=== PATIENT | female | born 1965 | race Caucasian/White ===

== ENCOUNTER 2019-02-10 06:32 | Inpatient (IN) ==
--- NOTE | 2019-01-16 16:20 | PAT Medication Instructions ---
Medication Instructions Date of Service January 16, 2019 Home Medications anastrozole 1 mg PO QPM calcium carbonate-vitamin D3 [Calcium 600 + D(3)] 1 cap PO BID carvedilol 25 mg PO BID cetirizine 10 mg PO HS ezetimibe [Zetia] 10 mg PO QPM fulvestrant [Faslodex] 250 mg IM MONTHLY hydrochlorothiazide 25 mg PO QAM lansoprazole 30 mg PO BID losartan 50 mg PO QAM montelukast 10 mg PO HS Continue as directed fulvestrant [Faslodex] 250 mg IM MONTHLY ASK your prescriber and surgeon anastrozole 1 mg PO QPM DO NOT take the morning of surgery calcium carbonate-vitamin D3 [Calcium 600 + D(3)] 1 cap PO BID hydrochlorothiazide 25 mg PO QAM losartan 50 mg PO QAM Take morning of surgery With a small sip of water, OTHERWISE NOTHING TO EAT OR DRINK AFTER MIDNIGHT: carvedilol 25 mg PO BID lansoprazole 30 mg PO BID Take evening before surgery calcium carbonate-vitamin D3 [Calcium 600 + D(3)] 1 cap PO BID carvedilol 25 mg PO BID cetirizine 10 mg PO HS ezetimibe [Zetia] 10 mg PO QPM lansoprazole 30 mg PO BID montelukast 10 mg PO HS Other Notes If you have any questions please call us at [phone] or [phone] or [phone] or [phone]
--- NOTE | 2019-01-17 10:49 | Anesthesiology Consultation ---
Date of Service January 17, 2019 Assessment & Plan (1) Encounter for pre-operative examination: Cardio: 01/10/19: BP elevated at 166/100-- losartan increased, HCTZ added and continued on carvedilol [BP at PAT visit 01/17/19: 148/94]. "She may proceed with anesthesia and surgery at low cardiovascular risk." Chart Review Chart Review: Acceptable Risk for Surgery and Patient seen in Pre Admission Testing Teaching & Discussion Pre-Anesthesia Teaching/Discussion Notes: Instructed NPO after midnight before surgery,except medications with 15 cc of water. Medication instructions provid ed according to the [facility] guidelines. History Surgery Operation Date: 02/10/19 07:30 Proposed Procedures p Left Total Hip Arthroplasty - Orestes Rosen DO Height/Weight Height: 5 ft 6 in Weight: 71.8 kg Allergies Allergy/AdvReac Type Severity Reaction Status Date / Time No Known Allergies Allergy Verified 01/11/19 09:03 Medications Home Medications Medication Instructions Recorded Confirmed Last Taken anastrozole 1 mg PO QPM 01/11/19 01/11/19 Unknown calcium carbonate-vitamin D3 1 cap PO BID 01/11/19 01/11/19 Unknown [Calcium 600 + D(3)] carvedilol 25 mg PO BID 01/11/19 01/11/19 Unknown cetirizine 10 mg PO HS 01/11/19 01/11/19 Unknown ezetimibe [Zetia] 10 mg PO QPM 01/11/19 01/11/19 Unknown fulvestrant [Faslodex] 250 mg IM MONTHLY 01/11/19 01/11/19 Unknown hydrochlorothiazide 25 mg PO QAM 01/11/19 01/11/19 Unknown lansoprazole 30 mg PO BID 01/11/19 01/11/19 Unknown losartan 50 mg PO QAM 01/11/19 01/11/19 Unknown montelukast 10 mg PO HS 01/11/19 01/11/19 Unknown Past Medical History Medical History Arthritis Cancer Uterine s/p total hyster/chemo; receives Faslodex IM monthly Right breast s/p mastectomy + LND/chemo/XRT-- RUL limb restriction Chronic kidney disease LEXY (2014)- was on dialysis for 7 months (LEXY resolved) Congestive heart failure hx Degenerative disc disease GERD (gastroesophageal reflux disease) controlled History of blood transfusion 10 years ago; unknown etiology Hyperlipidemia Hypertension Sleep apnea CPAP Exercise / Class Metabolic Activity II 4-5 Yardwork/Stairs/Walk up hill Past Surgical History Surgical History Cancer RIGHT BREAST (2008) MASTECTOMY + NODE REMOVAL UTERINE (~2013) TOTAL HYSTERECTOMY History of colonoscopy History of esophagogastroduodenoscopy (EGD) History of vascular access device POWER PORT IN PLACE R UPPER CHEST Past Anesthesia History No Hx of Anesthesia Complications and No Family Hx of Anesthesia Complications History of PONV No Hx of PONV and Hx of Motion Sickness (occasional) Social History Smoking Status: Never smoker Do You Dip or Chew Tobacco: No Hx Alcohol Use: Yes Alcohol type: wine and hard liquor alcohol intake frequency: holidays/special occasions only Hx Substance Use: No Review of Systems Patient denies chest pain, shortness of breath, dyspnea on exertion, cough, wheezing, palpitations. Physical Exam Vital Signs VITALS BP 148/94 (patient advised to monitor; followup with cardio) P 75 TEMP 97.7 SP02 97%RA RESP 18 PHYSICAL Full neck and c-spine range of motion. Full TMJ range of motion. TMD 3.5 finger breaths Mallampati Score 2 Dentition: full dentures upper/lower; edentulous Lungs: clear throughout to auscultation Cardiac: regular rate and rhythm, no murmurs noted Spine: normal Carotid arteries: negative bruit Extremities: no edema Testing Laboratory Results PT 10.3 Seconds (9.0-12.0) 01/17/19 11:11 INR 1.0 (0.9-1.1) 01/17/19 11:11 APTT 28.5 Seconds (21.0-31.0) 01/17/19 11:11 Hemoglobin A1c 5.9 % (4.5-5.6) H 01/17/19 11:11 Urine Color Yellow 01/17/19 Unknown Urine Appearance Clear (Clear) 01/17/19 Unknown Urine pH 6.5 (4.5-7.5) 01/17/19 Unknown Ur Specific Mondamin 1.014 (1.000-1.030) 01/17/19 Unknown Urine Protein Negative (Negative) 01/17/19 Unknown Urine Glucose (UA) Negative (Negative) 01/17/19 Unknown Urine Ketones Negative (Negative) 01/17/19 Unknown Urine Nitrite Negative (Negative) 01/17/19 Unknown Ur Leukocyte Esterase 1+ (Negative) H 01/17/19 Unknown Urine WBC (Auto) 1-5 /hpf (0-5) 01/17/19 Unknown Urine RBC (Auto) 0-4 /hpf (0-4) 01/17/19 Unknown U Hyaline Cast (Auto) 0 /lpf (0-5) 01/17/19 Unknown U Epithel Cells (Auto) 10-20 /lpf (0-5) H 01/17/19 Unknown Urine Bacteria (Auto) Negative (Negative) 01/17/19 Unknown Blood Type A Positive 01/17/19 11:11 Antibody Screen NEGATIVE 01/17/19 11:11 01/02/19 WBC 7.03 H/H 13.6/40.7 PLATELETS 295 SODIUM 139 POTASSIUM 4.4 CHLORIDE 101 CO2 26 BUN 21 CREATININE 1.2 GLUCOSE 110 Electrocardiogram Date: 01/10/19 NSR at 70bpm. Possible LAE. LVH. No significant change compared to 05/28/17 per cardio. Chest X-Ray Date: 09/13/18 Interval placement of right side [id number] catheter with satisfactory positioning. Interval removal of left MediPort catheter. No focal consolidation. Echocardiogram Date: 03/22/15 LVEF 58%. No RWMA. Mild TR/IA.
[2019-01-17 12:32] LABS: Appearance Urine Clear (Clear); Bacteria Urine Automated Negative (Negative); Bilirubin Urine Negative (Negative); Blood Urine Negative (Negative); Cast Urine Automated 0 /lpf (0-5); Color Urine Yellow; Glucose Urine UA Negative (Negative); Ketones Urine Negative (Negative); Leukocyte Esterase Urine 1+ (Negative); Nitrite Urine Negative (Negative); Protein Urine Negative (Negative); RBC Urine Automated 0-4 /hpf (0-4); Specific Gravity Urine 1.014 (1.000-1.030); Urobilinogen Urine Negative (Negative); pH Urine 6.5 (4.5-7.5)
[2019-01-17 12:35] LABS: Partial Thromboplastin Ratio 1.1; Partial Thromboplastin Time 28.5 Seconds (21.0-31.0); Prothrombin Time 10.3 Seconds (9.0-12.0)
[2019-01-17 12:43] LABS: Estimated Average Glucose 123 mg/dl; Hemoglobin A1C 5.9 % (4.5-5.6)
--- NOTE | 2019-02-09 10:09 | History & Physical Report ---
Date of Service February 09, 2019 Assessment & Plan (1) Degenerative joint disease of left hip: Schedule a left hip TRACEY for 02.10.19. All potential risks, benefits, complications, alternatives, and rehab have been discussed with the patient and she wishes to proceed. Plan for d/c home with home health with ASA 81 mg BID x 4 wks for DVT prophylaxis. History of Present Illness Chief Complaint: left hip pain Primary Care Provider: Rene Avalos This is a patient who has been treated for chronic left hip pain. She was treated conservatively for left hip osteoarthritis and degenerative joint disease. However, she has failed all conservative management. She is now being set up for a left TRACEY. Allergies Allergy/AdvReac Type Severity Reaction Status Date / Time No Known Allergies Allergy Verified 01/11/19 09:03 Home Medications Home Medications Medication Instructions Recorded Confirmed Type anastrozole 1 mg PO QPM 01/11/19 01/11/19 History calcium carbonate-vitamin D3 1 cap PO BID 01/11/19 01/11/19 History [Calcium 600 + D(3)] carvedilol 25 mg PO BID 01/11/19 01/11/19 History cetirizine 10 mg PO HS 01/11/19 01/11/19 History ezetimibe [Zetia] 10 mg PO QPM 01/11/19 01/11/19 History fulvestrant [Faslodex] 250 mg IM MONTHLY 01/11/19 01/11/19 History hydrochlorothiazide 25 mg PO QAM 01/11/19 01/11/19 History lansoprazole 30 mg PO BID 01/11/19 01/11/19 History losartan 50 mg PO QAM 01/11/19 01/11/19 History montelukast 10 mg PO HS 01/11/19 01/11/19 History Past Med/Surg History Medical History Arthritis Cancer Uterine s/p total hyster/chemo; receives Faslodex IM monthly Right breast s/p mastectomy + LND/chemo/XRT-- RUL limb restriction Chronic kidney disease LEXY (2014)- was on dialysis for 7 months (LEXY resolved) Congestive heart failure hx Degenerative disc disease GERD (gastroesophageal reflux disease) controlled History of blood transfusion 10 years ago; unknown etiology Hyperlipidemia Hypertension Sleep apnea CPAP Surgical History Cancer RIGHT BREAST (2008) MASTECTOMY + NODE REMOVAL UTERINE (~2013) TOTAL HYSTERECTOMY History of colonoscopy History of esophagogastroduodenoscopy (EGD) History of hysterectomy History of vascular access device POWER PORT IN PLACE R UPPER CHEST Social History Preferred Language: Ukrainian Communication Ability: Effective Tiler'S Assistant Required: No Beliefs That Will Affect Care: None Current Living Situation: Spouse and Family Other Information That Helps Us Care for You: No Feels Safe at Home: Yes Safety Concerns: Feels Safe At This Time Smoking Status: Never smoker Do You Dip or Chew Tobacco: No ; Second Hand Exposure: No ; Hx Alcohol Use: Yes Alcohol type: wine and hard liquor Hx Substance Use: No Physical Exam Constitutional: well developed and well nourished; no acute distress ENMT: external ear and nose normal, oropharynx normal Neck: trachea midline, no thyromegaly Respiratory: normal respiratory effort, lungs clear to auscultation Cardiovascular: Rate/Rhythm: regular rate and regular rhythm Gastrointestinal (Abdomen): normal bowel sounds, soft, nontender, no hepatosplenomegaly Musculoskeletal: Gait: + antalgic gait (left) Hip: + limited ROM of hip (left with internal/external), + hip ROM with crepitation (left hip), + joint line tenderness (left groin) and + DURAN test positive (left); no skin erythema and no ecchymosis
[~2019-02-10 06:32] MED LIST: ACETAMINOPHEN 500 MG TAB PO SCH; BUPIVACAINE 0.5 % 5 MG/1 ML PF 10ML VIAL ONE; CEFAZOLIN 1000MG 1,000 MG/7.5 ML SYR IV SCH; CeleBREX 200 MG CAP PO SCH; FAMOTIDINE 20 MG TAB PO SCH; GABAPENTIN 900 MG DOSE PO SCH; LR 500ML BOLUS, THEN 15ML/HR IV SCH; METOCLOPRAMIDE HCL 10 MG TABLET PO SCH; ROPIVACAINE 0.5% HCL/PF 150 MG, BUPIVACAINE 0.5% MPF 30 ML, EPINEPHrine 30MG/30ML (OR U... INFIL SCH; dexAMETHasone 4 MG TAB PO SCH
[2019-02-10] MEDS ORDERED: MIDAZOLAM HCL 1 MG/ML 2ML VIAL ONE (07:13)
[2019-02-10] MEDS ORDERED: TRANEXAMIC ACID 1,000 MG in 0.9 % SODIUM CHLORIDE 100 ML IV STA (07:39)
--- NOTE | 2019-02-10 07:42 | History & Physical Bridge Note ---
Date of Service February 10, 2019 History & Physical Bridge Note I have examined the patient, reviewed the History & Physical and in the interval since the performance of the History & Physical I have noted the following changes of clinical significance: no changes noted
[2019-02-10] MEDS ORDERED: ORTHO JOINT ANESTHETIC ONE (09:04)
[2019-02-10] MEDS ORDERED: BACITRACIN INJ 50,000 UNIT VIAL ONE (09:04)
[2019-02-10] MEDS ORDERED: fentaNYL citrate 100 MCG/2 ML VIAL ONE (10:03)
[2019-02-10] MEDS ORDERED: PHENYLEPHRINE 100MCG/ML 5ML SYR ONE (10:38)
[2019-02-10] MEDS ORDERED: PROPOFOL IV EMULSION 10 MG/ML 20 ML VIAL IV ONE (10:38)
[2019-02-10] MEDS ORDERED: ePHEDrine sulfate 50 MG/ML SYR ONE (10:38)
[2019-02-10] MEDS ORDERED: LIDOCAINE HCL 2% 2 ML VIAL/AMP(20MG/ML) INFIL ONE (10:39)
--- NOTE | 2019-02-10 11:13 | Post Operative Brief Note ---
Immediate Post Op Note v1 Date of Surgery February 10, 2019 Pre & Post Diagnosis Operation Date: 02/10/19 08:50 Pre-Op Diagnosis: LEFT HIP DEGENERATIVE JOINT DISEASE, LEFT HIP OSTEOARTHRITIS, LEFT HIP PAIN Post-Op Diagnosis: LEFT HIP DEGENERATIVE JOINT DISEASE, LEFT HIP OSTEOARTHRITIS, LEFT HIP PAIN Procedure Operation Date: 02/10/19 08:50 Actual Procedures p Left Total Hip Arthroplasty with press-fit [place] Accolade size 4 femoral stem, Trident PSL [place]CG[place] cluster acetabular shell size 50 mm, Trident X3 10 degree polyethylene 36 mm insert, Torx 6.5 millimeters screws x2, Biolox delta ceramic femoral head size 36 mm x +2.5 mm (Left) - Orestes Rosen DO Surgeon Orestes Rosen DO Marine Underwriter Gabe Beckett PA-C Estimated Blood Loss 201 Findings Consistent with Post-Op Diagnosis Specimens Bone and tissue left hip Drains Hemovac Drain (10 fr dual trocar) Anesthesia Type Spinal MAC Complications none Disposition Accompanied Patient To Recovery: No Disposition: Recovery Room
[2019-02-10] MEDS ORDERED: ATROPINE SULFATE 0.1 MG/ML 10ML SYR IV PRN (12:06)
[2019-02-10] MEDS ORDERED: ePHEDrine sulfate 50 MG/ML AMP IV PRN (12:06)
--- NOTE | 2019-02-10 12:07 | Anesthesiology Progress Note ---
Date of Service February 10, 2019 Anesthesia Post Procedure Vital Signs Vital Signs: Temp Pulse Pulse Resp BP Pulse Ox 02/10/19 12:00 80 13 128/85 98 02/10/19 11:45 37.0 C 76 18 126/80 98 02/10/19 11:35 78 15 131/92 99 02/10/19 11:25 36.8 C 81 20 130/79 98 02/10/19 07:01 36.9 C 77 18 151/91 H 98 Transfer of Care Handoff Completed per policy Notes Mental Status: alert / awake / arousable and participated in evaluation Nausea / Vomiting: adequately controlled Pain: adequately controlled Airway Patency, RR, SpO2: stable & adequate BP & HR: stable & adequate Hydration State: stable & adequate Neuraxial Anesthesia: was administered and sensory block is resolving Anesthetic Complications: no major complications apparent and Pt Satisfied with anesthetic care
--- NOTE | 2019-02-10 12:10 | XRay Report ---
XR hip 1V LT w pelvis CLINICAL HISTORY: Left hip arthroplasty COMPARISON: None. DISCUSSION: There are postsurgical changes of a total left hip arthroplasty. The acetabular femoral c omponents appear well seated. There is air within the soft tissues consistent with recent surgery. Th ere are overlying surgical drains. There are no acute fractures or subluxations. IMPRESSION: Postsurgical changes of a total left hip arthroplasty. Electronically signed by: Hollis Garcia M.D. 02/10/2019 12:09 PM
[2019-02-10] MEDS ORDERED: ONDANSETRON INJ 2 MG/ML 2 ML VIAL IV PRN (12:19)
[2019-02-10] MEDS ORDERED: METOCLOPRAMIDE HCL INJ 5 MG/ML 2 ML VIAL IV PRN (12:19)
[2019-02-10] MEDS ORDERED: bisacodyL 10 MG SUPP PR PRN (12:19)
[2019-02-10] MEDS ORDERED: SODIUM CHLORIDE 0.9% 1000ML 1,000 ML IV SCH (12:19)
[2019-02-10] MEDS ORDERED: MAGNESIUM HYDROXIDE SUSP 30 ML UDC PO PRN (12:19)
[2019-02-10] MEDS ORDERED: NALOXONE HCL 0.4 MG/1 ML VIAL/CARP IV PRN (12:19)
[2019-02-10] MEDS ORDERED: HYDROmorphone INJ 0.5 MG/0.5 ML SYR IV PRN (12:19)
--- NOTE | 2019-02-10 12:35 | Operative Report ---
DATE OF OPERATION: 02/10/2019 PREOPERATIVE DIAGNOSES: 1. Left hip degenerative joint disease. 2. Left hip osteoarthritis. 3. Left hip pain. POSTOPERATIVE DIAGNOSES: 1. Left hip degenerative joint disease. 2. Left hip osteoarthritis. 3. Left hip pain. PROCEDURE: Left total hip arthroplasty using a [place] Press-Fit size 4 femur with a Trident PSL [place]CG[place] cluster acetabular shell 50 mm in diameter, torques 6.5 mm cancellous bone screws x2. Trident X3 10-degree elevated polyethylene insert, 36 mm with a Biolox delta ceramic femoral head 36 mm +2.5 mm neck length. SURGEON: Orestes Rosen DO CARD DECORATOR: Gabe Beckett PA-C who was present for patient positioning, sterile prep and drape, management of retractors and instruments. He was present through the critical portions of the case including wound closure, application of sterile dressing and transport of the patient to recovery. ANESTHESIA: Spinal, MAC with intra-articular local. SPECIMENS: Bone and tissue left hip. DRAINS: Hemovac x2. COMPLICATIONS: None. BLOOD LOSS: 201 mL. PERTINENT HISTORY: This is a 54-year-old woman who attempted and failed conservative management including activity modification, rest, observation, anti-inflammatories, intra-articular steroid injections, physical therapy and physician directed home exercises. She has tried an assistive device. Radiographs demonstrate marginal osteophytes, subchondral sclerosis and subchondral cyst with loss of joint space in the left hip. The patient was then scheduled for surgery as indicated. All potential risks, benefits, complications, alternatives, rehab, potential for incomplete relief of symptoms, need for further surgery, DVT, PE, , persistent pain, swelling, scarring, weakness, neurovascular injury, wound complications, hardware failure, nonunion, malunion, bone fracture were discussed with the patient. The patient decided to proceed with the procedure as indicated. PROCEDURE: The patient was taken to the Operating Suite and placed supine on the Operating Room table after identification of the consent and identification of the proper operative site the patient was sedated. The patient had previously received a spinal epidural anesthetic. The patient was then placed in the left lateral decubitus position with the affected side up and Stulberg positioning device then used to maintain lateral position of the patient. All bony prominences were properly padded and protected. Axillary roll was placed as standard and the leg lengths were determined to be essentially equal and then the right hip was then sterilely prepped and draped in the usual fashion. A 10-blade scalpel incision was made laterally over the greater trochanter. The incision was deepened through the subcutaneous tissue and meticulous hemostasis with electrocautery. Further deepening of the wound through the layer of the fascia was performed with electrocautery and iliotibial band was then incised with electrocautery. Next, Charnley retractor was placed bother anteriorly and posteriorly at the level of the gluteus tendon. Next, electrocautery was used to make an incision in the vastus lateralis and then sweep was made toward the anterior aspect of the patient along the course of the femoral neck and head. Abductor split was then completed. The gluteus minimus and capsule were then incised and then soft tissue was dissected anteriorly. Next as the soft tissue was dissected anteriorly the lesser trochanter was clearly identified and hip was dislocated with relative ease. Hypertrophic osteophytes were noted circumferentially. The hip joint was noted to be noticeably tight. Next the sagittal saw was used to resect the proximal portion of the femoral neck and head approximately one fingerbreadth proximal to the lesser trochanter. Head was then removed and next the labrum was excised from the acetabulum with a 22 blade scalpel and long forceps. Next the wound was irrigated with pulsatile lavage and the pulvinar was then excised from the acetabulum. Appropriate retractors were placed anteriorly superiorly and posteriorly. Next initial acetabular reamer was placed 44 mm medialized to the medial wall and then sequential reaming was performed to size 50 mm. Trial cage was then placed and noted to be stable with excellent fit. Next the wound was irrigated with pulsatile lavage with bacitracin additive and 56 mm Michael trident PSL cup was impacted and then two 6.5 mm screws were used to stabilize the acetabular shell. Next X3 poly 36 mm was impacted into the shell. Lap sponge was placed over to protect it. Next, attention was turned toward the proximal femur. Box osteotome was used to resect proximal portion of bone followed by first pass small reamer. Next, sequential broaching was performed up to size 4 and the 4 trial was placed followed by -2.5mm X 36 mm trial head. Next, it was reduced and had excellent fit and feel with minimal shuck and excellent stability in all planes and range of motion. Leg lengths were restored and next all trial implants were removed. The wound was copiously irrigated with pulsatile lavage and size 4 Accolade TMZF x 132 degree final stem was impacted. Next, Biolox ceramic 36 mm head -2.5mm neck was impacted. The construct was reduced. Range of motion was performed and noted to be completely stable with excellent range of motion, improved to greater degree than prior to surgery. The periarticular region was injected with Ortho mix. The wound was then soaked with dilute sterile Betadine for approximately 3 minutes. The wound was then irrigated and suctioned dry. Two 10 [place] single Hemovac drains were placed exiting anterolaterally. Wound was irrigated with pulsatile lavage. Next a #5 Fiberwire suture was used to close the capsule and gluteus minimum via two small bone tunnels made with 2.4 mm drill bit in the greater trochanter. After Fiberwire closure was completed and noted to be stable then 10 Vietnamese drains were placed followed by closure of the vastus lateralis and the gluteus medius. This was closed with #1 Vicryl sutures. Next, the iliotibial band was closed using interrupted [id number] #1 Vicryl sutures. Next, final irrigation was performed with pulsatile lavage and dermis was closed using buried interrupted 2-0 Vicryl suture. The skin was closed with skin rk. Sterile compressive dressing was applied. The patient was then placed supine and taken to recovery in stable condition. I attest to the content of the Intraoperative Record and any orders documented therein. Any exceptions are noted below. SADED
[2019-02-10] MEDS: DOCUSATE SODIUM 100 MG CAP PO SCH ×2 (13:48→20:44)
[2019-02-10] MEDS: KETOROLAC TROMETHAMINE 15 MG/ML VIAL IV SCH ×3 (13:49→19:16)
[2019-02-10] MEDS: hydroCHLOROthiazide 25 MG TAB PO SCH (13:49)
[2019-02-10] MEDS: LOSARTAN POTASSIUM 50 MG TAB PO SCH (13:49)
[2019-02-10] MEDS: CALCIUM 600MG + VIT D 400 IU TAB PO SCH ×2 (13:49→20:45)
[2019-02-10] MEDS: MULTIVITAMIN TAB PO SCH (13:50)
[2019-02-10] MEDS: ASPIRIN 81 MG ECTAB PO SCH ×2 (13:50→20:45)
[2019-02-10] MEDS: ACETAMINOPHEN 500 MG TAB PO SCH ×2 (13:50→21:17)
[2019-02-10] MEDS: CEFAZOLIN 1000MG 1,000 MG/7.5 ML SYR IV SCH ×2 (15:48→23:18)
[2019-02-10] MEDS ORDERED: TRANEXAMIC ACID 1,000 MG in 0.9 % SODIUM CHLORIDE 100 ML IV SCH (17:30)
[2019-02-10] MEDS: EZETIMIBE 10 MG TABLET PO SCH (20:44)
[2019-02-10] MEDS: MONTELUKAST SODIUM 10 MG TABLET PO SCH (20:45)
[2019-02-10] MEDS: carvediloL 25 MG TAB PO SCH (20:45)
[2019-02-10] MEDS: LANSOPRAZOLE 30 MG SOLTAB PO SCH (20:46)
[2019-02-10] MEDS: ANASTROZOLE 1 MG TAB PO SCH (20:46)
[2019-02-10] MEDS: SENNA 8.6 MG TAB PO SCH (20:46)
[2019-02-10] MEDS: CETIRIZINE HCL 10 MG TABLET PO SCH (20:46)
[2019-02-11] MEDS: ACETAMINOPHEN 500 MG TAB PO SCH ×3 (05:53→21:35)
[2019-02-11 06:39] LABS: Basophils # (auto) 0.01 K/uL (0-0.2); Basophils % (auto) 0.1 %; Hematocrit (blood only) 29.8 % (37-47); Hemoglobin 9.9 g/dL (12.0-16.0); Immature Granulocytes # (auto) 0.05 K/uL (0.00-0.02); Immature Granulocytes % (auto) 0.3 %; Lymphocytes # (auto) 0.87 K/uL (1.2-3.4); Lymphocytes % (auto) 5.9 %; Mean Corpuscular Hemoglobin 27.4 pg (25-34); Mean Corpuscular Hgb Conc 33.2 g/dL (32-36); Mean Corpuscular Volume 82.5 fL (80-100); Mean Platelet Volume 10.2 fL (7.4-10.4); Monocytes # (auto) 1.14 K/uL (0.11-0.59); Monocytes % (auto) 7.7 %; Neutrophils # (auto) 12.69 K/uL (1.4-6.5); Platelet Count 270 K/uL (130-400); RDW Coefficient of Variation 13.9 % (11.5-14.5); RDW Standard Deviation 42.4 fL (36.4-46.3); Red Blood Count 3.61 M/uL (4.2-5.4); White Blood Count 14.76 K/uL (4.8-10.8)
[2019-02-11 07:11] LABS: BUN Creatinine Ratio 22.2 (10-20); Calcium 9.1 mg/dl (8.5-10.1); Creatinine Clr Calc Pharmacy 42.7 ml/min; Est GFR (African American) 44.3; Est GFR (Non-African American) 38.2; Potassium 3.5 mmol/L (3.5-5.1)
[2019-02-11] MEDS: DOCUSATE SODIUM 100 MG CAP PO SCH ×2 (07:12→20:27)
--- NOTE | 2019-02-11 07:42 | Orthopedic Progress Note ---
Date of Service February 11, 2019 Assessment & Plan (1) Degenerative joint disease of left hip: POD#1 Left TRACEY -Pain management -DVT prophylaxis-ASA 81mg BID x 30 days -PT/OT -D/c planning-home with HH when stable AM labs-hemoglobin at 9.9 this morning from base line of 13.6. Acute blood loss anemia likely due to surgical loss vs dilutional effect. Creatine elevated to 1.5 from baseline of 1.2, will follow. Subjective Patient is resting in bed comfortably. has some pain this morning but well controlled. has been ambulating without complication. Denies chest pain, dizziness, sob, n/v. Review of Systems Review of Systems: All systems reviewed & are unremarkable except as noted in HPI & below Physical Exam Physical Exam: Resting in bed comfortably. Dressing is c/d/i. Hemovac intact. No calf tenderness, calves soft. Toes mobile, good dorsiflexion. Distally sensation and n/v status intact. Constitutional: well developed and well nourished; no acute distress Results & Data Vital Signs (Past 12 Hours) Vital Signs Temp Pulse Resp BP Pulse Ox 02/11/19 03:19 36.8 C 87 16 118/76 99 02/10/19 23:04 36.9 C 97 H 16 126/73 96 02/10/19 20:43 105 H 131/90 Laboratory Results Lab Results 01/17/19 01/17/19 01/17/19 Range/Units 11:11 11:11 11:11 WBC (4.8-10.8) K/uL RBC (4.2-5.4) M/uL Hgb (12.0-16.0) g/dL Hct (37-47) % MCV (80-100) fL MCH (25-34) pg MCHC (32-36) g/dL RDW Std Deviation (36.4-46.3) fL RDW Coeff of Lyubov (11.5-14.5) % Plt Count (130-400) K/uL MPV (7.4-10.4) fL Immature Gran % (Auto) % Neut % (Auto) % Lymph % (Auto) % [place] % (Auto) % Eos % (Auto) % Baso % (Auto) % Immature Gran # (Auto) (0.00-0.02) K/uL Neut # (Auto) (1.4-6.5) K/uL Lymph # (Auto) (1.2-3.4) K/uL [place] # (Auto) (0.11-0.59) K/uL Eos # (Auto) (0-0.5) K/uL Baso # (Auto) (0-0.2) K/uL PT 10.3 (9.0-12.0) Seconds INR 1.0 (0.9-1.1) APTT 28.5 (21.0-31.0) Seconds PTT Ratio 1.1 Sodium (136-145) mmol/L Potassium (3.5-5.1) mmol/L Chloride (98-107) mmol/L Carbon Dioxide (21-32) mmol/L Anion Gap (3-11) BUN (7-18) mg/dl Creatinine (0.6-1.2) mg/dl Est Cr Clr Drug Dosing ml/min Est GFR ( Amer) Est GFR (Non-Af Amer) BUN/Creatinine Ratio (10-20) Glucose (70-99) mg/dl Estimat Average Glucose 123 mg/dl Hemoglobin A1c 5.9 H (4.5-5.6) % Calcium (8.5-10.1) mg/dl Albumin 4.1 (3.4-5.0) gm/dl Urine Color Urine Appearance (Clear) Urine pH (4.5-7.5) Ur Specific [place] (1.000-1.030) Urine Protein (Negative) Urine Glucose (UA) (Negative) Urine Ketones (Negative) Urine Blood (Negative) Urine Nitrite (Negative) Urine Bilirubin (Negative) Urine Urobilinogen (Negative) Ur Leukocyte Esterase (Negative) Urine WBC (Auto) (0-5) /hpf Urine RBC (Auto) (0-4) /hpf U Hyaline Cast (Auto) (0-5) /lpf U Epithel Cells (Auto) (0-5) /lpf Urine Bacteria (Auto) (Negative) Blood Type Antibody Screen 01/17/19 01/17/19 02/11/19 Range/Units 11:11 Unknown 06:26 WBC 14.76 H (4.8-10.8) K/uL RBC 3.61 L (4.2-5.4) M/uL Hgb 9.9 L (12.0-16.0) g/dL Hct 29.8 L (37-47) % MCV 82.5 (80-100) fL MCH 27.4 (25-34) pg MCHC 33.2 (32-36) g/dL RDW Std Deviation 42.4 (36.4-46.3) fL RDW Coeff of Lyubov 13.9 (11.5-14.5) % Plt Count 270 (130-400) K/uL MPV 10.2 (7.4-10.4) fL Immature Gran % (Auto) 0.3 % Neut % (Auto) 86.0 % Lymph % (Auto) 5.9 % [place] % (Auto) 7.7 % Eos % (Auto) 0.0 % Baso % (Auto) 0.1 % Immature Gran # (Auto) 0.05 H (0.00-0.02) K/uL Neut # (Auto) 12.69 H (1.4-6.5) K/uL Lymph # (Auto) 0.87 L (1.2-3.4) K/uL [place] # (Auto) 1.14 H (0.11-0.59) K/uL Eos # (Auto) 0.00 (0-0.5) K/uL Baso # (Auto) 0.01 (0-0.2) K/uL PT (9.0-12.0) Seconds INR (0.9-1.1) APTT (21.0-31.0) Seconds PTT Ratio Sodium (136-145) mmol/L Potassium (3.5-5.1) mmol/L Chloride (98-107) mmol/L Carbon Dioxide (21-32) mmol/L Anion Gap (3-11) BUN (7-18) mg/dl Creatinine (0.6-1.2) mg/dl Est Cr Clr Drug Dosing ml/min Est GFR ( Amer) Est GFR (Non-Af Amer) BUN/Creatinine Ratio (10-20) Glucose (70-99) mg/dl Estimat Average Glucose mg/dl Hemoglobin A1c (4.5-5.6) % Calcium (8.5-10.1) mg/dl Albumin (3.4-5.0) gm/dl Urine Color Yellow Urine Appearance Clear (Clear) Urine pH 6.5 (4.5-7.5) Ur Specific [place] 1.014 (1.000-1.030) Urine Protein Negative (Negative) Urine Glucose (UA) Negative (Negative) Urine Ketones Negative (Negative) Urine Blood Negative (Negative) Urine Nitrite Negative (Negative) Urine Bilirubin Negative (Negative) Urine Urobilinogen Negative (Negative) Ur Leukocyte Esterase 1+ H (Negative) Urine WBC (Auto) 1-5 (0-5) /hpf Urine RBC (Auto) 0-4 (0-4) /hpf U Hyaline Cast (Auto) 0 (0-5) /lpf U Epithel Cells (Auto) 10-20 H (0-5) /lpf Urine Bacteria (Auto) Negative (Negative) Blood Type A Positive Antibody Screen NEGATIVE 02/11/19 Range/Units 06:26 WBC (4.8-10.8) K/uL RBC (4.2-5.4) M/uL Hgb (12.0-16.0) g/dL Hct (37-47) % MCV (80-100) fL MCH (25-34) pg MCHC (32-36) g/dL RDW Std Deviation (36.4-46.3) fL RDW Coeff of Lyubov (11.5-14.5) % Plt Count (130-400) K/uL MPV (7.4-10.4) fL Immature Gran % (Auto) % Neut % (Auto) % Lymph % (Auto) % [place] % (Auto) % Eos % (Auto) % Baso % (Auto) % Immature Gran # (Auto) (0.00-0.02) K/uL Neut # (Auto) (1.4-6.5) K/uL Lymph # (Auto) (1.2-3.4) K/uL [place] # (Auto) (0.11-0.59) K/uL Eos # (Auto) (0-0.5) K/uL Baso # (Auto) (0-0.2) K/uL PT (9.0-12.0) Seconds INR (0.9-1.1) APTT (21.0-31.0) Seconds PTT Ratio Sodium 137 (136-145) mmol/L Potassium 3.5 (3.5-5.1) mmol/L Chloride 101 (98-107) mmol/L Carbon Dioxide 27 (21-32) mmol/L Anion Gap 9.0 (3-11) BUN 34 H (7-18) mg/dl Creatinine 1.52 H (0.6-1.2) mg/dl Est Cr Clr Drug Dosing 42.7 ml/min Est GFR ( Amer) 44.3 Est GFR (Non-Af Amer) 38.2 BUN/Creatinine Ratio 22.2 H (10-20) Glucose 130 H (70-99) mg/dl Estimat Average Glucose mg/dl Hemoglobin A1c (4.5-5.6) % Calcium 9.1 (8.5-10.1) mg/dl Albumin (3.4-5.0) gm/dl Urine Color Urine Appearance (Clear) Urine pH (4.5-7.5) Ur Specific [place] (1.000-1.030) Urine Protein (Negative) Urine Glucose (UA) (Negative) Urine Ketones (Negative) Urine Blood (Negative) Urine Nitrite (Negative) Urine Bilirubin (Negative) Urine Urobilinogen (Negative) Ur Leukocyte Esterase (Negative) Urine WBC (Auto) (0-5) /hpf Urine RBC (Auto) (0-4) /hpf U Hyaline Cast (Auto) (0-5) /lpf U Epithel Cells (Auto) (0-5) /lpf Urine Bacteria (Auto) (Negative) Blood Type Antibody Screen (1) Degenerative joint disease of left hip Osteoarthritis type: primary Qualified Code(s): M16.12 - Unilateral primary osteoarthritis, left hip
[2019-02-11] MEDS ORDERED: dexAMETHasone 4 MG TAB PO SCH (08:00)
[2019-02-11] MEDS: hydroCHLOROthiazide 25 MG TAB PO SCH (08:32)
[2019-02-11] MEDS: carvediloL 25 MG TAB PO SCH ×2 (08:32→20:26)
[2019-02-11] MEDS: LANSOPRAZOLE 30 MG SOLTAB PO SCH ×2 (08:32→20:27)
[2019-02-11] MEDS: MULTIVITAMIN TAB PO SCH (08:32)
[2019-02-11] MEDS: CALCIUM 600MG + VIT D 400 IU TAB PO SCH ×2 (08:32→20:27)
[2019-02-11] MEDS: ASPIRIN 81 MG ECTAB PO SCH ×2 (08:33→08:35)
[2019-02-11] MEDS: LOSARTAN POTASSIUM 50 MG TAB PO SCH (08:33)
[2019-02-11] MEDS ORDERED: SODIUM CHLORIDE 0.9% 1000ML 500 ML IV ONE (08:59)
[2019-02-11] MEDS ORDERED: ENOXAPARIN INJ 30 MG/0.3 ML SYR SQ SCH (09:15)
[2019-02-11] MEDS: ENOXAPARIN INJ 40 MG/0.4 ML SYR SQ SCH (09:35)
[2019-02-11] MEDS: OXYCODONE HCL IR 5 MG TAB (IMMEDIATE RELEASE) PO PRN (15:10)
[2019-02-11] MEDS: ANASTROZOLE 1 MG TAB PO SCH (20:27)
[2019-02-11] MEDS: EZETIMIBE 10 MG TABLET PO SCH (20:27)
[2019-02-11] MEDS: CETIRIZINE HCL 10 MG TABLET PO SCH (20:27)
[2019-02-11] MEDS: SENNA 8.6 MG TAB PO SCH (20:28)
[2019-02-11] MEDS: MONTELUKAST SODIUM 10 MG TABLET PO SCH (20:28)
[2019-02-11] MEDS ORDERED: CeleBREX 200 MG CAP PO SCH (21:00)
[2019-02-12] MEDS: ACETAMINOPHEN 500 MG TAB PO SCH (05:13)
[2019-02-12 05:34] LABS: Hematocrit (blood only) 26.8 % (37-47); Immature Granulocytes # (auto) 0.07 K/uL (0.00-0.02); Immature Granulocytes % (auto) 0.6 %; Lymphocytes # (auto) 0.83 K/uL (1.2-3.4); Lymphocytes % (auto) 6.6 %; Mean Corpuscular Hgb Conc 33.6 g/dL (32-36); Mean Corpuscular Volume 83.5 fL (80-100); Mean Platelet Volume 10.4 fL (7.4-10.4); Monocytes # (auto) 1.19 K/uL (0.11-0.59); Monocytes % (auto) 9.5 %; Neutrophils # (auto) 10.47 K/uL (1.4-6.5); Neutrophils % (auto) 83.3 %; Platelet Count 242 K/uL (130-400); RDW Coefficient of Variation 14.2 % (11.5-14.5); RDW Standard Deviation 43.5 fL (36.4-46.3); Red Blood Count 3.21 M/uL (4.2-5.4); White Blood Count 12.56 K/uL (4.8-10.8)
[2019-02-12 06:32] LABS: BUN Creatinine Ratio 27.6 (10-20); Calcium 8.8 mg/dl (8.5-10.1); Creatinine Clr Calc Pharmacy 47.7 ml/min; Est GFR (African American) 50.6; Est GFR (Non-African American) 43.7; Potassium 3.8 mmol/L (3.5-5.1)
--- NOTE | 2019-02-12 08:01 | Orthopedic Progress Note ---
Date of Service February 12, 2019 Assessment & Plan (1) Degenerative joint disease of left hip: POD#2 Left TRACEY -Pain management -DVT prophylaxis-patient refused aspirin yesterday, switched to Lovenox. Will discharge home with Lovenox. -PT/OT -D/c planning-home with HH when stable, likely today after PT. AM labs-hemoglobin stable at 9 this morning.. Acute blood loss anemia likely due to surgical loss vs dilutional effect. Creatine improved from yesterday to 1.36 from 1.5 yesterday. Subjective Patient is resting in bed comfortably. has some pain this morning but well controlled. has been ambulating without complication. Denies chest pain, dizziness, sob, n/v. Review of Systems Review of Systems: All systems reviewed & are unremarkable except as noted in HPI & below Physical Exam Physical Exam: Left hip donald intact, clean and dry. No calf tenderness, calves are soft toes are mobile good dorsiflexion. Distally neurovascular status and sensation intact Constitutional: well developed and well nourished; no acute distress Results & Data Vital Signs (Past 12 Hours) Vital Signs Temp Pulse Resp BP Pulse Ox 02/12/19 06:55 36.9 C 82 18 124/71 96 02/11/19 23:29 36.8 C 82 16 126/74 95 02/11/19 20:30 87 130/76 (1) Degenerative joint disease of left hip Osteoarthritis type: primary Qualified Code(s): M16.12 - Unilateral primary osteoarthritis, left hip
[2019-02-12] MEDS: CALCIUM 600MG + VIT D 400 IU TAB PO SCH (08:22)
[2019-02-12] MEDS: carvediloL 25 MG TAB PO SCH (08:22)
[2019-02-12] MEDS: DOCUSATE SODIUM 100 MG CAP PO SCH (08:22)
[2019-02-12] MEDS: hydroCHLOROthiazide 25 MG TAB PO SCH (08:24)
[2019-02-12] MEDS: LOSARTAN POTASSIUM 50 MG TAB PO SCH (08:24)
[2019-02-12] MEDS: ENOXAPARIN INJ 40 MG/0.4 ML SYR SQ SCH (08:25)
[2019-02-12] MEDS: MULTIVITAMIN TAB PO SCH (08:25)
[2019-02-12] MEDS: LANSOPRAZOLE 30 MG SOLTAB PO SCH (08:25)
[2019-02-12] MEDS: OXYCODONE HCL IR 5 MG TAB (IMMEDIATE RELEASE) PO PRN (10:02)
--- NOTE | 2019-02-17 14:10 | Discharge Summary ---
Date of Service February 17, 2019 Admission HPI Per Admitting Provider This is a patient who has been treated for chronic left hip pain. She was treated conservatively for left hip osteoarthritis and degenerative joint disease. However, she has failed all conservative management. She is now being set up for a left TRACEY. Principal Diagnosis left hip osteoarthritis Discharge Exam Constitutional well developed and well nourished; no acute distress ENMT external ear and nose normal, oropharynx normal Neck trachea midline, no thyromegaly Respiratory normal respiratory effort, lungs clear to auscultation Cardiovascular Rate/Rhythm: regular rate and regular rhythm Gastrointestinal (Abdomen) normal bowel sounds, soft, nontender, no hepatosplenomegaly Musculoskeletal Gait: + antalgic gait (left) Hip: + surgical incision (left hip: zipline in place, RANDA dressing functioning) and + limited ROM of hip (left with internal/external); no skin erythema, no ecchymosis, no crepitation with hip ROM (left hip) and no joint line tenderness (left groin) Discharge Data Allergies Allergy/AdvReac Type Severity Reaction Status Date / Time No Known Allergies Allergy Verified 02/10/19 06:56 Consultations 02/11/19 08:00 Consult Case Management - Discharge Planning Routine Procedures Performed Operation Date: 02/10/19 08:50 Actual Procedures p Left Total Hip Arthroplasty(Left) - Orestes Rosen DO Hospital Course (1) Degenerative joint disease of left hip: The patient underwent a left TRACEY on 02.10.19. She progressed well with PT and pain control. On POD #2, she was discharge home with home health. POD#2 Left TRACEY -Pain management -DVT prophylaxis-patient refused aspirin yesterday, switched to Lovenox. Will discharge home with Lovenox. -PT/OT -D/c planning-home with when stable, likely today after PT. AM labs-hemoglobin stable at 9 this morning.. Acute blood loss anemia likely due to surgical loss vs dilutional effect. Creatine improved from yesterday to 1.36 from 1.5 yesterday. Total Time Total Time Spent Total Time Spent (In Minutes): 30 Total Time Includes: Examination of the Patient, Discharge Planning and Medication Reconciliation Discharge Plan Discharge Items Patient Disposition: Home - Home Health Services Reason For Visit: LEFT HIP OSTEOARTHRITIS Discharge Diagnosis: Left hip osteoarthritis Activity: Per Instructions section Non-emergency contact: Surgeon Call non-emergency contact if: you have any medication questions, your pain is not controlled, your pain is concerning for you, you have a fever, your temperature is above 101, your wound has increased redness and your wound has increased drainage Follow-up/Referrals: Rene Avalos PA-C [Primary Care Provider] - Diet: Regular Addtl Attending Provider Instructions: ACTIVITY RECOMMENDATIONS: SELF CARE INSTRUCTIONS AFTER TOTAL HIP REPLACEMENT Until the incision and soft tissues around your hip have healed, there is a possibility that the hip prosthesis could dislocate. A. Observe the following precautions to prevent dislocation: 1. Don't bend your hip greater than 90 degrees. 2. Avoid crossing your legs or ankles while standing or lying. 3. Sit with your feet placed 6 inches apart. 4. When sitting, keep your knees below your hips. Sit on a firm surface, avoid deep, soft chairs and couches. Use an elevated toilet seat in the bathroom. 5. Don't bend over at the waist. Use a long handled shoehorn and a sock aid to help you put on your shoes and socks. A plate maker can help you grape picker objects that are too high or too low to reach. 6. Keep car riding to a minimum for at least one month after surgery. B. Your balance may be shaky for a while. Use crutches or a walker until directed by your doctor. C. Use hand rails when walking on stairs. D. Wear low heeled shoes with non-slip soles. E. Be sure that your floors are free of things that could trip you - throw rugs, electrical cords, small objects. Avoid wet and waxed floors, especially with crutches and canes. F. Try to walk several times a day with rest periods between. G. Continue with all the exercises taught to you in the hospital. Again, make walking a part of your daily routine. SPECIAL CARE INSTRUCTIONS: VERY IMPORTANT TO READ AND REVIEW A. You may still be at risk for phlebitis and blood clots. 1. Wear surgical stockings (SYMONE hose) for 2 weeks after surgery to improve circulation and reduce swelling. 2. Take Aspirin 81mg twice daily for 4 weeks or as directed by your doctor. This is your blood thinner. 3. High risk patients may be prescribed a stronger blood thinner if necessary. 4. If you are on Coumadin normally, your family doctor/mica plate layer should monitor your blood work. Expect a phone call the day of or the day after bloodwork is drawn to adjust your dosage. B. You must take antibiotics before having dental work, bladder, bowel and other surgery. Your doctor will provide you with a permanent card to carry describing precautions. C. Call [facility] if you have a fever, redness or swelling around the incision, cloudy drainage from incision, or sudden increase in pain in your hip, not relieved by your regular pain medication. D. Please call the office at if you have any concerns or questions about your operation or recovery. * YOU MAY SHOWER, NO TUB BATHS UNTIL CLEARED BY YOUR DOCTOR. * WEAR SYMONE HOSE 20 HOURS PER DAY FOR 2 WEEKS. * YOU SHOULD USE A WALKER OR CRUTCHES FOR 2-4 WEEKS. THIS WILL HELP PREVENT STRAIN ON YOUR HIP MUSCLE AND ALLOW IT TO HEAL PROPERLY. YOU MAY WEAN TO A CANE TOLERATED. * MOST PATIENTS WILL HAVE HOME NURSING FOR THERAPY. IF YOU DECIDE TO DO OUTPATIENT PHYSICAL THERAPY, PLEASE SCHEDULE THIS 3 TIMES PER WEEK. * This is a large suction dressing covering your incision. This will help pull any excess drainage from the wound and allow your incision to heal properly. You may shower with this if you can keep the unit outside of the shower. If any bleeding or leakage is noted please call your doctor's office. This will remain on your incision for 7 days and then should be removed. This can be done yourself or by the home nursing staff if applicable. The entire unit is disposable once removed. Once removed, keep incision clean and dry. If redness or drainage is noted, please call your surgeon. FOLLOW UP VISIT: If appointment is not already scheduled: Please call [facility] to make a follow-up appointment for 2 weeks after your surgery at . Pending Studies at Discharge: No Stand-Alone Forms: My [employer] Opioid Pain Management Medications and DC Order Prescriptions: New acetaminophen [Tylenol Extra Strength] 500 mg Tablet 1,000 mg PO Q8 Qty: 60 RF: 0 oxycodone 5 mg Tablet 5 - 10 mg PO Q6H MDD 6 PRN (Reason: pain) Qty: 30 RF: 0 enoxaparin 40 mg/0.4 mL Syringe 40 mg subcut QAM Qty: 30 RF: 0 Continued losartan 50 mg Tablet 50 mg PO QAM RF: 0 anastrozole 1 mg Tablet 1 mg PO QPM RF: 0 carvedilol 25 mg Tablet 25 mg PO BID RF: 0 ezetimibe [Zetia] 10 mg Tablet 10 mg PO QPM RF: 0 lansoprazole 30 mg Tablet,Disintegrat, Delay Rel 30 mg PO BID RF: 0 cetirizine 10 mg Capsule 10 mg PO HS RF: 0 hydrochlorothiazide 25 mg Tablet 25 mg PO QAM RF: 0 montelukast 10 mg Tablet 10 mg PO HS RF: 0 Calcium 600 + D(3) 600 mg calcium- 200 unit Capsule 1 cap PO BID RF: 0 fulvestrant [Faslodex] 250 mg/5 mL Syringe 250 mg IM MONTHLY RF: 0 Discharge Orders: Discharge Order (Routine); Ordered 02/12/19 Ordered By: Renaldo Vega/Other Patient Handouts: Surgery Prevent DVT After, ED Stockings Symone Admission Data Admit Date/Time: 02/10/19 11:37 Attending Provider: Orestes Rosen Admit Provider: Orestes Rosen Primary Care Provider: Rene Avalos Other Interventions: Discharge Summary Assessment (RN) Last Done: 02/12/19 10:07 DC Date/Time DO NOT enter until pt leaves facility: 02/12/19 11:55
== END 2019-02-12 11:55 | disposition home health service (06) | DRG 470 ==
LOC: ASU 06:32 → 3E 11:37